=== PATIENT | female | born 1985 | race African-American/Black ===

== ENCOUNTER 2017-05-29 15:49 | Emergency (ER) | payer BC ==
--- NOTE | 2017-05-29 15:52 | EDPHY ---
H & P Time Seen by Provider: 05/29/17 15:52 Constitutional: Initial Vital Signs Temperature (C) 36.7 C 05/29/17 15:54 Heart Rate 93 05/29/17 15:54 Respiratory Rate 18 05/29/17 15:54 Blood Pressure 119/85 H 05/29/17 15:54 O2 Sat (%) 98 05/29/17 15:54 O2 Delivery Mode Room Air O2 (L/minute) 99 Allergies/Adverse Reactions: No Known Allergies Allergy (Unverified 05/29/17 15:54) Home Medications: Medication Instructions Recorded NK [No Known Home Meds] 05/29/17 Medical Decision Making ED Course/Re-evaluation: CHIEF COMPLAINT: Syncope HISTORY OF PRESENT ILLNESS: 32-year-old healthy female visiting from [facility]. She was hiking with some friends. She did not hydrate. She ate a marijuana edible. About an hour half later she had a brief syncopal episode while at lunch. She feels normal now. She has never had anything like that before. She denies acute injury. She denies any trauma or any other symptoms. She is not ill. She has no cardiac dysfunction. REVIEW OF SYSTEMS: A 10 point review of systems was performed and is negative with the exception of the elements mentioned in the history of present illness. PHYSICAL EXAM: HR, BP, O2 Sat, RR. Temp noted General Appearance: Alert, well hydrated, appropriate, and non-toxic appearing. Head: Atraumatic without scalp tenderness or obvious injury Eyes: Pupils equal, round, reactive to light and accommodation, EOMI, no trauma , no injection. Ears: Clear bilaterally, no perforation, normal landmarks Nose: Atraumatic, no rhinorrhea, clear. Throat: There is no erythema or exudates, no lesions, normal tonsils, mucus membranes moist. Neck: Supple, 2+ carotid upstroke, nontender, no lymphadenopathy. Respiratory: No retractions, no distress, no wheezes, and no accessory muscle use. Lungs are clear to auscultation bilaterally. Cardiovascular: Regular rate and rhythm, no murmurs, rubs, or gallops. Bilateral carotid, radial, dorsalis pedis, and posterior tibial pulses intact. Good capillary refill all extremities. Gastrointestinal: Abdomen is soft, nontender, non-distended, no masses, no rebound, no guarding, no peritoneal signs. Musculoskeletal: Normal active ROM of all extremities, atraumatic. Neurological: Alert, appropriate, and interactive. The patient has normal DTRs and non-focal cranial nerves, motor, sensory, and cerebellar exam. Skin: No rashes, good turgor, no nodules on palpation. Past medical history: None Past surgical history: None Family history: Noncontributory Social history: Single, employed, does not abuse tobacco alcohol, has never used edible marijuana before DIAGNOSTICS/PROCEDURES/CRITICAL CARE TIME: The 12 lead EKG was interpreted by myself. See hard copy and/or "tracemaster" electronic copy for interpretation. Normal sinus mechanism no ischemia normal intervals DIFFERENTIAL DIAGNOSIS: The differential diagnosis for the patient's syncope included but was not limited to vasovagal syncope, arrhythmia, dehydration, cardiogenic causes, neurogenic causes, medications or substances, and blood loss. MEDICAL DECISION MAKING: This patient is slightly dehydrated, [place], she was hiking at altitude, she used marijuana, she had a brief syncopal episode, she is completely fine now am going to discharge her. Her EKG is unremarkable Departure - Departure Disposition: Home, Routine, Self-Care Clinical Impression: Orthostatic syncope Condition: Good Instructions: Syncope (ED)
[2017-05-29 15:57] VITALS: BP 119/85; TEMP 98.1
--- NOTE | 2017-05-29 16:12 | CPEKG ---
Heart Rate: 83 RR Interval: 723 P-R Interval: 152 QRSD Interval: 82 QT Interval: 364 QTC Interval: 428 P [place]: 85 QRS [place]: 27 T Wave [place]: 50 EKG Severity - NORMAL ECG - EKG Impression: SINUS RHYTHM Electronically Signed By: Sebastian Montemayor 29-May-2017 21:55:13
[2017-05-29 16:39] VITALS: PULSE 78; RESP 14; O2SAT 100
== END 2017-05-29 16:39 | disposition home or self-care (01) ==
DX: R55 Syncope and collapse (principal)